=== PATIENT | female | born 2005 | race Two or more races ===

== ENCOUNTER 2025-07-25 00:14 | Emergency (ER) | payer MEDICAID ==
[~2025-07-25] VITALS: Ht 162.6 cm; Wt 75.0 kg
[~2025-07-25 00:14] MED LIST: DICL50TA2 PO
--- NOTE | 2025-07-25 01:05 | ED.PDOC ---
ASSEMBLER BRAZER HPI Comments 20-year-old female who came to ER for nausea and vomiting. Patient is a , she has been having episodes of nausea and vomiting, was prescribed Reglan by her OB business management consultant, with slight relief. [facility], as she took the pill she became more nauseated and weak. No vaginal bleeding noted or abdominal cramping noted Chief Complaint: Nausea/Vomiting Time Seen by MD: 01:04 Reviewed Notes: Nurses Notes Allergies: Coded Allergies: NO KNOWN ALLERGIES (Unverified , 05/27/18) Home Meds Active Scripts Diclofenac Potassium (Diclofenac Potassium) 50 Mg Tab, 1 TAB PO TIDP for 10 Days, #30 TAB Prov:GRACY MORIN MD 01/27/24 Information Source: Patient Mode of Arrival: Ambulatory Timing: Days Associated Signs and Symptoms: N/V Past Medical History PAST MEDICAL HISTORY: Denies Surgical History: Denies all surgeries REFRIGERATOR REPAIRMAN History: No Pertinent REFRIGERATOR REPAIRMAN History 1 Para 0 Family History Family History: Unknown Social History Smoker: Non-Smoker Alcohol: Denies ETOH Use Drugs: Denies Drug Use Lives In: Home Constitutional: reports: weakness; denies: chills, diaphoresis, fatigue, fever, malaise, sweats, others EENTM: denies: blurred vision, double vision, ear bleeding, ear discharge, ear drainage, ear pain, ear ringing, eye pain, eye redness, hearing loss, mouth pain, mouth swelling, nasal discharge, nose bleeding, nose congestion, nose pain, photophobia, tearing, throat pain, throat swelling, voice changes, others Respiratory: denies: cough, hemoptysis, orthopnea, SOB at rest, shortness of breath, SOB with excertion, stridor, wheezing, others Cardiovascular: denies: chest pain, dizzy spells, diaphoresis, Dyspnea on exertion, edema, irregular heart beat, left arm pain, lightheadedness, palpitations, PND, syncope, others Gastrointestinal: reports: nausea, vomiting; denies: abdomen distended, abdom inal pain, blood streaked bowels, constipated, diarrhea, dysphagia, difficulty swallowing, hematemesis, melena, poor appetite, poor fluid intake, rectal bleeding, rectal pain, others Genitourinary: denies: abnormal vagina bleeding, burning, dyspareunia, dysuria, flank pain, frequency, hematuria, incontinence, pain, , vagina discharge, urgency, others Neurological: denies: dizziness, fainting, headache, left sided numbness, left sided weakness, numbness, paresthesia, pre-existing deficit, right sided numbness, right sided weakness, seizure, speech problems, tingling, tremors, weakness, others Musculoskeletal: denies: back pain, gout, joint pain, joint swelling, muscle pain, muscle stiffness, neck pain, others Integumetry: denies: bruises, change in color, change in hair/nails, dryness, laceration, lesions, lumps, rash, wounds, others Allergic/Immunocompromised: denies: Difficulty Healing, Frequent Infections, Hives, Itching, others Hematologic/Lymphatic: denies: anemia, blood clots, easy bleeding, easy bruising, swollen glands, others Endocrine: denies: excessive hunger, excessive sweating, excessive thirst, excessive urination, flushing, intolerance to cold, intolerance to heat, unexplained weight gain, unexplained weight loss, others Psychiatric: denies: anxiety, bipolar disorder, depression, hopeless, panic disorder, schizophrenia, sleepless, suicidal, others Physical Exam General Appearance: No Apparent Distress, Normal HEENT: Normal ENT Inspection, Pharynx Normal, TMs Normal, Other (Moist mucous membranes) Neck: Full Range of Motion, Non-Tender, Normal, Normal Inspection Respiratory: Chest Non-Tender, Lungs Clear, No Accessory Muscle Use, No Respiratory Distress, Normal Breath Sounds Cardiovascular: No Edema, No JVD, No Murmur, No Gallop, Normal Peripheral Pulses, Regular Rate/Rhythm Breast Exam: Deferred Gastrointestinal: No Organomegaly, Non Tender, No Pulsatile Mass, Normal Bowel Sounds, Soft Genitalia: Deferred Pelvic: Deferred Rectal: Deferred Extremities: No calf tenderness, Normal capillary refill, Normal inspection, Normal range of motion, Non-tender, No pedal edema Musculoskeletal : Apperance: Normal Neurologic: Alert, game bird farmer II-XII nml as Tested, No Motor Deficits, Normal Affect, Normal Mood, No Sensory Deficits Cerebellar Function: Normal Reflexes: Normal Skin: Dry, Normal Color, Warm Lymphatic: No Adenopathy Was a procedure done? Was a procedure done?: No Differential Diagnosis (REFRIGERATOR REPAIRMAN) Vaginal Bleeding: Ectopic , UTI Vaginal Discharge: , UTI, Other (Dehydration, HYPEREMESIS GRAVIDARUM, MOLAR , chs) Comments Hyperemesis gravidarum X-Ray, Labs, Meds, VS Vital Signs Date Time Temp Pulse Resp B/P (MAP) Pulse Ox O2 Delivery O2 Flow Rate FiO2 07/25/25 00:36 98.5 103 18 137/85 97 98.5 Time of 1ST Reevaluation: 00:56 Reevaluation 1ST: Unchanged Time of 2ND Reevaluation: 02:21 Reevaluation 2ND: ELOPED Patient Education/Counseling: Diagnosis, Treatment Family Education/Counseling: Diagnosis, Treatment Departure 1 Departure Time of Disposition: 02:21 Impression: Primary Impression: Nausea Disposition: 07 LEFT AWOL/ELOPED Condition: Other (UNKNOWN) Critical Care Note Critical Care Time?: No Stability Stability form required: No Heart Score Heart Score: Heart Score Response (Comments) Value History N/A 0 EKG N/A 0 Age N/A 0 Risk Factors N/A 0 Troponin N/A 0 Total 0 I personally scribed for ALEXEY OLIVO MD ([email or web address]) on 07/25/25 at 01:05. Electronically submitted by Zeferino Guzman ([facility] ALEXEY OLIVO MD Jul 25, 2025 01:05
[2025-07-25] MEDS: ONDANSETRON ODT 4 MG TAB PO ONE (02:36)
[2025-07-25] MEDS: ONDANSETRON HCL 4 MG/2 ML VIAL IV ONE (03:59)
[2025-07-25] MEDS: SODIUM CHLORIDE 0.9% 1,000 ML IV ONE (03:59)
[2025-07-25 04:02] VITALS: PULSE 99; RESP 20; O2SAT 98
[2025-07-25] MEDS ORDERED: ZOFR4T PO (04:43)
[2025-07-25 05:00] VITALS: BP 139/87; PULSE 99; RESP 18; TEMP 98.5; O2SAT 98
== END 2025-07-25 04:42 | disposition home or self-care (01) ==
LOC: ER 00:14
DX: R11.2 Nausea with vomiting, unspecified (principal); Z79.899 Other long term (current) drug therapy
CPT/HCPCS: 96361; 96374; 99283; J2405; J7030; Q0162